=== PATIENT | male | born 1980 ===

== ENCOUNTER 2017-08-05 18:32 | Emergency (ER) | payer BC, OTHER ==
--- NOTE | 2017-08-05 18:59 | UC ---
Leonides Christianson Natalie, scribed for Ruperto Tracey MD on 08/05/17 at 1849 . Bite Injury/Animal HPI - HPI Summary HPI Summary: The patient is a 36 y/o M presenting to [facility] c/o tick bite in right upper lateral back last night. The tick was large in size, and it was removed with tweezers. There is redness surrounding the area, but there isn't any swelling or other pertinent symptoms. - History of Current Complaint Chief Complaint: UCSkin Stated Complaint: TICK Time Seen by Provider: 08/05/17 18:42 Hx Obtained From: Patient Severity Currently: Mild Severity Initially: Mild Pain Intensity: 1 Pain Scale Used: 0-10 Numeric Onset/Duration: Sudden Onset, Lasting Hours, Still Present Type of Bite: Wild Animal - tick Character: Abrasion/Laceration Associated Signs And Symptoms: Positive: Erythema - Allergies/Home Medications Allergies/Adverse Reactions: Allergies Allergy/AdvReac Type Severity Reaction Status Date / Time No Known Allergies Allergy Verified 08/05/17 18:40 PMH/Surg Hx/FS Hx/Imm Hx Other Endocrine History: NEGATIVE: diabetes Other Cardiovascular History: NEGATIVE: cardiac disease - Surgical History Surgical History: Yes Surgery Procedure, Year, and Place: ankle - Family History Known Family History: Negative: Diabetes - Social History Alcohol Use: Weekly Substance Use Type: Marijuana Substance Use Comment - Amount & Last Used: 2 times a week Smoking Status (MU): Never Smoked Tobacco Review of Systems Constitutional: Negative - fever Skin: Other - redness where tick was in skin All Other Systems Reviewed And Are Negative: Yes Physical Exam Triage Information Reviewed: Yes Vital Signs: Initial Vital Signs Temp 98.9 F 08/05/17 18:37 Pulse 91 08/05/17 18:37 Resp 18 08/05/17 18:37 BP 142/91 08/05/17 18:37 Pulse Ox 100 08/05/17 18:37 Vital Signs Reviewed: Yes ENT: Positive: Normal ENT inspection, Other - no facial or neck swelling. Neck: Positive: Other: - FROM Respiratory Exam: Normal Respiratory: Positive: No respiratory distress Cardiovascular: Positive: Brisk Capillary Refill Abdomen Description: Negative: Distended Musculoskeletal: Positive: ROM Intact, No Edema Neurological: Positive: Alert, Muscle Tone Normal Psychological: Positive: Age Appropriate Behavior Skin: Positive: Other - On the right Latissiumus dorsi side there is a localized tick bite reaction with about 2 cm of erythema present. Bite Injury Course/Dx - Course Course Of Treatment: The patient is a 36 y/o M who was bitten by a tick last night. He will be discharged home with prescription for doxycycline. BP up and will follow up with PMD for recheck. - Differential Dx/Diagnosis Provider Diagnoses: tick bite. hypertension Discharge - Sign-Out/Discharge Documenting (check all that apply): Discharge/Admit/Transfer - Discharge Plan Condition: Good Disposition: HOME Prescriptions: Doxycycline Monohydrate 100 mg PO BID #28 capsule Patient Education Materials: Tick Bite (ED), Hypertension (ED) Referrals: Alessandra Haynes MD [Primary Care Provider] - 2 Days - Billing Disposition and Condition Condition: GOOD Disposition: HOME The documentation as recorded by the Leonides tamayo Natalie accurately reflects the service I personally performed and the decisions made by , Ruperto Tracey MD.
== END 2017-08-05 18:58 | disposition home or self-care (01) ==
LOC: UCEAST 18:32
DX: S20.461A Insect bite (nonvenomous) of right back wall of thorax, initial encounter (principal); I10 Essential (primary) hypertension; W57.XXXA Bitten or stung by nonvenomous insect and other nonvenomous arthropods, initial encounter; Y92.9 Unspecified place or not applicable
CPT/HCPCS: 99202; G0463